=== PATIENT | female | born 1990 | race Caucasian/White ===

== ENCOUNTER 2023-08-18 07:59 | Emergency (ER) | payer OTHER, SELFPAY ==
[2023-08-18 08:05] VITALS: BP 121/87; PULSE 93; RESP 20; TEMP 36.7; O2SAT 97; BMI 18.8
--- NOTE | 2023-08-18 08:12 | ED_ITS ---
Discharge Plan Disposition Patient Disposition: Home, Self-Care Condition: Good Prescriptions Prescriptions: New cefdinir 300 mg capsule 300 mg PO Q12H 10 Days Qty: 20 0RF fluticasone propionate [Flonase Allergy Relief] 50 mcg/actuation spray,suspension 1 spray intranasal DAILY Qty: 16 0RF Rx Instructions: administer into each nostril No Action Sudafed 24 Hour 240 mg Tablet Extended Release 24 Hr 240 mg PO DAILY Referrals Follow up/Referrals: Provider,Referral, [Primary Care Provider] - See instructions Activity Restrictions/Add. Instructions Additional Instructions/Restrictions: Follow up with primary care provider once you return home from vacation. Wear ear plugs while in water. Clinical Impressions Clinical Impression: Acute right otitis media Instructions Patient Instructions: Middle Ear Infections (Alternative Therapy), Middle Ear Infection Discharge ED Provider: Jasmin Martinez [facility] HPI General Stated complaint: right ear pain Time Seen by Provider: 08/18/23 08:11 History of Present Illness Provider Complaint: Pt reports that she finished a round of antibiotics on Tuesday for an URI. She reports that she continues to have significant right ear pain. She states that she has had a lot of ear issues and has a pin sized hole in that ear drum. She has been taking Sudafed to dry up her ears. Related Data Home Medications Medication Instructions Recorded Confirmed pseudoephedrine HCl 240 mg 240 mg PO DAILY 08/18/23 08/18/23 tablet,extended release 24 hr (Sudafed 24 Hour) Previous Rx's Medication Instructions Recorded cefdinir 300 mg capsule 300 mg PO Q12H 10 days #20 caps 08/18/23 fluticasone propionate 50 1 spray intranasal DAILY #16 grams 08/18/23 mcg/actuation nasal spray,suspension (Flonase Allergy Relief) Allergies Allergy/AdvReac Type Severity Reaction Status Date / Time codeine Allergy Verified 08/06/23 09:14 [facility] Disclaimer: The information contained in this section may have been updated after the patient was seen, as this information can be updated by other users. Surgical History (Updated 08/18/23 @ 08:23 by Lizzy Cali RN) History of tympanostomy tube placement History of tonsillectomy History of cholecystectomy Social History (Updated 08/07/23 @ 20:01 by Eulalio Waldrop APRN) Smoking Status: Never smoker alcohol intake: never current occupational status: employed Travel in the last 8 weeks: None ROS Obtained: Yes All systems reviewed & no additional complaints except as documented Constitutional Constitutional: Reports system reviewed and no additional complaints, except as documented Eyes Eyes: Reports system reviewed and no additional complaints, except as documented ENT Ears, Nose, Mouth, and Throat: Reports system reviewed and no additional complaints, except as documented and Reports otalgia Cardiovascular Cardiovascular: Reports system reviewed and no additional complaints, except as documented Respiratory Respiratory: Reports system reviewed and no additional complaints, except as documented Gastrointestinal Gastrointestingal: Reports system reviewed and no additional complaints, except as documented Genitourinary Female Genitourinary: Reports system reviewed and no additional complaints, except as documented Musculoskeletal Musculoskeletal: Reports system reviewed and no additional complaints, except as documented Integumentary/Breasts Skin/Breast: Reports system reviewed and no additional complaints, except as documented Neurologic Neurologic: Reports system reviewed and no additional complaints, except as documented Endocrine Endocrine: Reports system reviewed and no additional complaints, except as documented Hematologic/Lymphatic Henatologic/Lymphatic: Reports system reviewed and no additional complaints, except as documented Allergic/Immunologic Allergic/Immunologic: Reports system reviewed and no additional complaints, except as documented Physical Exam General General appearance: alert and in no apparent distress Head Head exam: atraumatic and normocephalic Eye Eye exam: Present normal appearance ENT ENT exam: Present normal oropharynx and mucous membranes moist Expanded ENT Exam External ear exam: Present normal external inspection TM/Canal exam: Left TM: effusion, Right TM: erythema and perforation (perforation with red streak from the area) and Bilateral TM: loss of landmarks (scarring noted) Nasal speculum exam: Bilateral: normal Mouth exam: Present normal external inspection Teeth exam: Present normal inspection Throat exam: Present normal inspection Neck Neck exam: Present lymphadenopathy Chest Chest inspection: Present normal inspection and symmetric chest wall rise Respiratory Respiratory exam: Present normal lung sounds bilaterally Cardiovascular Cardiovascular exam: Present regular rate, normal rhythm and normal heart sounds Abdominal Exam Abdominal exam: Present soft and normal bowel sounds Extremities Exam Extremities exam: Present normal inspection Back Exam Back exam: Present normal inspection Neurological Exam Neurological exam: Present alert and oriented X3 Psychiatric Psychiatric exam: Present normal affect and normal mood Skin Skin exam: Present warm, dry and intact Lymphatic Lymphatic Findings: no adenopathy Medical Decision Making John Inquiry Pt receiving controlled substance: No John was queried for this patient: No
[2023-08-18 08:26] VITALS: BP 121/87; PULSE 93; RESP 20; TEMP 36.7; O2SAT 97
== END 2023-08-18 08:33 | disposition home or self-care (01) ==
PROVIDERS: Emergency Provider Nurse Practitioner Family
DX: H66.91 Otitis media, unspecified, right ear (principal); H92.01 Otalgia, right ear
CPT/HCPCS: 99212; 99214; G0463

== ENCOUNTER 2023-10-12 09:29 | Outpatient (POV) | payer OTHER, SELFPAY | END 2023-10-12 23:59 | disposition home or self-care (01) | LOC: SC 09:29 | PROVIDERS: Visit Provider Specialist/Technologist | DX: Z00.00 Encounter for general adult medical examination without abnormal findings (principal) ==

== ENCOUNTER 2024-12-18 09:48 | Outpatient (CLI) | payer OTHER, SELFPAY ==
[2024-12-18 08:57] VITALS: BMI 19.5
[2024-12-18 10:17] LABS: Urine Pregnancy, HCG Qual. Negative (Negative)
[2024-12-18 10:19] LABS: Hematocrit 39.1 % (37.0-47.0); Hemoglobin 12.9 g/dL (12.2-16.2); Mean Corpuscular HGB Conc 33.0 g/dL (31.8-35.4); Mean Corpuscular Hemoglobin 30.6 pg (27.0-31.2); Mean Corpuscular Volume 92.7 fl (81-99); Platelet Count 309 K/mm3 (142-424); Red Blood Count 4.22 M/mm3 (4.20-5.40); White Blood Count 7.4 K/mm3 (4.8-10.8)
[2024-12-18 10:29] LABS: Anion Gap 14.6 mEq/L (5-15); Blood Urea Nitrogen 24 mg/dl (7-17); Calcium 9.3 mg/dl (8.4-10.2); Carbon Dioxide 27 mmol/L (22.0-30.0); Chloride 103 mmol/L (98-107); Creatinine Clearance Estimated 69 mL/min (50-200); Creatinine,Serum 0.80 mg/dl (0.52-1.04); Estimated Glomerular Filt Rate 83 ml/min (>60); GFR (African American) 100 ML/MIN (>60); Glucose 74 mg/dl (74-100); Potassium 3.6 mmoL/L (3.5-5.1); Sodium 141 mmol/L (136-145)
[2024-12-18 11:40] LABS: Total Cells Counted 100
[2024-12-18 11:41] LABS: RBC Morphology Normal
== END 2024-12-18 23:59 | disposition home or self-care (01) ==
LOC: PREOP 09:49
PROVIDERS: Visit Provider Otolaryngology
DX: Z01.812 Encounter for preprocedural laboratory examination (principal)
CPT/HCPCS: 80048; 81025; 85007; 85014; 85018; 85048; 85049

== ENCOUNTER 2024-12-26 06:22 | Day surgery (SDC) | payer OTHER, SELFPAY ==
[2024-12-18 11:58] VITALS: BMI 18.3
[2024-12-26] VITALS (10 sets, daily range): BP systolic 115–146; BP diastolic 76–97; PULSE 67–84; RESP 14–18; TEMP 36.1–36.7; O2SAT 95–99
[2024-12-26 06:47] LABS: Urine Pregnancy, HCG Qual. Negative (Negative)
[2024-12-26] MEDS: LACTATED RINGERS 1000ML 1,000 ML 25 ML IV (07:07)
--- NOTE | 2024-12-26 07:11 | EXP.ANES.CKL ---
[facility] Disclaimer: The information contained in this section may have been updated after the patient was seen, as this information can be updated by other users. 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 Hearing loss Ear drainage right Surgical History History of tympanostomy tube placement History of tonsillectomy History of cholecystectomy Family History Other Family history of hyperlipidemia Social History Smoking Status: Never smoker alcohol intake: never substance use type: unknown current occupational status: employed Travel in the last 8 weeks?: None [facility] Anesthesia Checklist Patient Identification Patient Identification: Arm Band and Verbal (Name & ) Structural Data Admitted From: Home Planned Operative Procedure/s: R ear cartilage Consent for Planned Operative Procedure(s) Verified: Yes Verified Documents: Surgical Consent and History and Physical NPO Status Verified Time NPO: 00:00 Additional verifications Patient : No Anesthesia Reactions: No Hx Blood Transfusions: No Blood Transfusion Reaction: No Airway Assessment Mallampati Score:: Class II Dentition: Good Dentition Neurological Assessment Level of Consciousness: Awake, Alert and Appropriate Hx Seizures: No Numbness or tingling in extremities: No Anesthesia Plan Anesthesia Risk discussed: Yes Anesthesia Plan: Verified ASA Class: II Anesthesia Type: General
[2024-12-26] MEDS: CIPRO 0.3%-DEX 0.1% OTIC SUSP 7.5ML 7.5 ML OT (08:16)
[2024-12-26] MEDS: BACITRACIN ZINC OINT 30GM TUBE 28 GM TP (08:16)
[2024-12-26] MEDS: LIDOCAINE 1% W/EPI 1:100,000 20ML VIAL 20 ML (08:16)
--- NOTE | 2024-12-26 09:16 | P.OP_ITS ---
Date of procedure: 12/26/24 Pre-op Diagnosis:: Right tympanic membrane perforation, conductive hearing loss Post-op Diagnosis:: Right tympanic membrane perforation, conductive hearing loss Procedure performed:: Right cartilage graft tympanoplasty Surgeon:: Fidel Gaming MD [employer]OTHER[employer] MACHINIST:: Kwesi Garza Anesthesia: GETA Estimated blood loss (mL): 0 Operative findings:: Posterior inferior perforation 25% in size. Ossicular chain intact Operative note:: The patient was brought to the operating room and after adequate general anesthesia the right ear was prepped and draped in the usual sterile fashion and 1% lidocaine with epinephrine used to local infiltrate the tragus and ear canal. A posterior canal incision was made 4 mm from the tympanic annulus and then a tympanomeatal flap elevated deep to the annulus sparing the chorda tympani nerve. The acicular chain was inspected and seen to be intact. The margins of the perforation were then de-epithelialized with a straight pick and cup forceps. The middle ear was then packed with Gelfoam and attention drawn to the tragus. An incision was made on the canal surface of the tragus and then dissection was performed down to the perichondrium of the tragal cartilage and then a composite cartilage and perichondrial graft was harvested. Donor site was then closed with 5-0 fast-absorbing chromic. The graft was then cut to appropriate size and then slid medial to the tympanomeatal flap with the perichondrium facing laterally. The tympanomeatal flap was then returned to anatomic position and the graft adjusted to cover all margins of the perforation. The graft and tympanomeatal flap were then held in position by packing the external canal with Gelfoam soaked in Ciprodex. A sterile dressing was placed and the procedure concluded. All counts correct and blood loss was minimal Condition: stable Disposition: PACU Complications:: No complications
--- NOTE | 2024-12-26 09:18 | P.PNANES_ITS ---
[facility] Anesthesia Record Part I Anesthesia Record I Intake, IV Amount: 700 Hydration: Adequate Estimated blood loss (mL): 0 Urine output (mL): 0 Blood Products used (#): none Blood Pressure: 145/79 SaO2: 97 Pulse Rate: 74 Airway Patency: Patent Respiratory Rate: 14 Temperature: 98.1 F Patient is:: Drowsy and Stable Stable to PACU at:: 09:14
--- NOTE | 2024-12-26 13:35 | EXP.ANES.II ---
[facility] Anesthesia Record Part II Anesthesia Record Part II Discharge Time: 09:34 Destination: Surgical Day Care (OP Surgery) PACU nurse assessment reviewed?: Yes Patient Condition:: Good Anesthesia Complications:: None Swallowing reflex intact?: Yes Airway Patency: Patent Cyanosis?: No Blood Pressure: 129/81 SaO2: 97 Respiratory Rate: 16 Pulse Rate: 72 Temperature: 98.1 F Mental Status: Alert & Oriented Pain level:: 0 Nausea and/or vomitting:: None Intake, IV Amount: 0 Hydration: Adequate
== END 2024-12-26 10:07 | disposition home or self-care (01) ==
PROVIDERS: Nurse Practitioner; Visit Provider Otolaryngology
PROC: (CPT 69631; principal; 2024-12-26 08:00)
DX: H72.91 Unspecified perforation of tympanic membrane, right ear (principal); H90.0 Conductive hearing loss, bilateral; Z90.49 Acquired absence of other specified parts of digestive tract; Z96.22 Myringotomy tube(s) status; Z88.5 Allergy status to narcotic agent; Z91.040 Latex allergy status
CPT/HCPCS: 69631; 81025; J1100; J2003; J2004; J2405; J2704; J3010; J7120